=== PATIENT | female | born 1940 | race Caucasian/White ===

== ENCOUNTER 2016-10-10 15:20 | Inpatient (IN) | payer OTHER ==
[~2016-10-10] VITALS: Ht 175.3 cm; Wt 90.6 kg
[2016-10-12] MEDS ORDERED: CELE200C PO (10:55)
[2016-10-12] MEDS ORDERED: ASPI81TA81 PO (10:55)
[2016-10-12] MEDS ORDERED: BYST10TA2 PO (10:56)
[2016-10-12] MEDS ORDERED: METF1000 PO (10:56)
[2016-10-12] MEDS ORDERED: LOSA100T PO (10:56)
[2016-10-12] MEDS ORDERED: LEVO112T2 PO (10:57)
[2016-10-12] MEDS ORDERED: CANA100T PO (10:57)
[2016-10-12] MEDS ORDERED: ZETI10TA5 PO (10:57)
[2016-10-12] MEDS ORDERED: PROT40TA PO (10:58)
[2016-10-29] MEDS ORDERED: TRANEXAMIC ACID INJ 1,360 MG in SODIUM CHLORIDE 0.9% INJ 100 ML IV SCH (06:45)
[2016-10-29] MEDS ORDERED: POVIDONE IODINE 5% (ANTISEPSIS KIT) 4 APPLICATIONS EACH NARE PRN (06:45)
[2016-10-29] MEDS ORDERED: INSULIN HUMAN REGULAR 1,000 UNITS/10 ML VIAL SQ PRN (06:45)
[2016-10-29] MEDS ORDERED: SODIUM CHLORID 0.9% 500 ML IV PRN (06:45)
[2016-10-29] MEDS ORDERED: CHLORHEXIDINE GLUCONATE 2 % 1 PACK (2 CLOTHS) TOPICAL PRN (06:45)
[2016-10-29] MEDS ORDERED: LACTATED RINGER'S 1000 ML IV PRN (06:45)
[2016-10-29] MEDS ORDERED: DEXAMETHASONE SOD PHOS 20 MG/5 ML VIAL IV PRN (06:45)
[2016-10-29] MEDS ORDERED: METOPROLOL TARTRATE 25 MG TAB PO PRN (06:45)
[2016-10-29] MEDS ORDERED: VANCOMYCIN 1000 MG/NS 250 ML (for <70 kg) IV SCH ×2 (06:45)
[2016-10-29] MEDS ORDERED: CHLORHEXIDINE GLUCONATE 4% SOLN 120 ML BTL TOPICAL SCH (06:45)
[2016-10-29] MEDS ORDERED: TRANEXAMIC PERI-ARTICULAR 3,000 MG/NS 100 ML P-ARTICULR SCH ×2 (06:45)
[2016-10-29] MEDS ORDERED: POVIDONE IODINE 7.5% SCRUB 118 ML BOTTLE TOPICAL SCH (06:45)
[2016-10-29] MEDS ORDERED: ROPIVACAINE PERI-ARTICULAR INJECTION. P-ARTICULR SCH ×5 (06:45)
[2016-10-29] MEDS ORDERED: CLINDAMYCIN 900 MG/NS 100 ML IV SCH ×2 (06:45)
[2016-10-29] MEDS ORDERED: HYDR-3288 PO (06:58)
[2016-10-29] MEDS ORDERED: ENOX40P SQ (06:58)
[2016-10-29] MEDS ORDERED: ASPI81CH37 CHEW (06:59)
[2016-10-29] MEDS: LEVOTHYROXINE SODIUM 112 MCG TAB PO SCH (07:00)
[2016-10-29] MEDS ORDERED: ZOLPIDEM TARTRATE 5 MG TAB PO PRN (07:00)
[2016-10-29] MEDS ORDERED: NALOXONE HCL 0.4 MG/ML AMP IV PRN (07:00)
[2016-10-29] MEDS ORDERED: SODIUM CHLORIDE 0.9% FLUSH 5 ML FLUSH IVF PRN (07:00)
[2016-10-29] MEDS ORDERED: diphenhydrAMINE HCL 50 MG/ML VIAL IV PRN (07:00)
[2016-10-29] MEDS ORDERED: MORPHINE SULFATE 4 MG/ML INJ IV PUSH PRN (07:00)
[2016-10-29] MEDS ORDERED: Post-op Orders (for Pharmacy) MISC XX ONE (07:00)
[2016-10-29] MEDS ORDERED: BISACODYL 10 MG SUPP RECTAL PRN (07:00)
[2016-10-29] MEDS ORDERED: SODIUM CHLORIDE 0.9% INJ 100 ML ONE (07:03)
[2016-10-29] MEDS ORDERED: GENTAMICIN SULFATE 80 MG/2 ML VIAL ONE (07:09)
[2016-10-29 07:17] VITALS: BP 122/67; PULSE 58; RESP 16; TEMP 97.7; O2SAT 96
[2016-10-29] MEDS ORDERED: ACETAMINOPHEN 1000 MG/100 ML VIAL IV ONE (07:59)
[2016-10-29] MEDS ORDERED: MIDAZOLAM HCL 2 MG/2 ML VIAL ONE (08:00)
[2016-10-29] MEDS ORDERED: fentaNYL CITRATE 250 MCG/5 ML AMP ONE (08:00)
[2016-10-29] MEDS: metFORMIN HCL 500 MG TAB PO SCH ×2 (09:00→17:47)
[2016-10-29] MEDS: EZETIMIBE 10 MG TAB PO SCH (09:00)
[2016-10-29] MEDS ORDERED: CANAGLIFLOZIN 100 MG PO SCH (09:00)
[2016-10-29] MEDS: PANTOPRAZOLE SOD 40 MG DELAYED RELEASE TAB PO SCH (09:00)
[2016-10-29] MEDS: NEBIVOLOL 10 MG TAB PO SCH (09:00)
[2016-10-29] MEDS ORDERED: LEVOTHYROXINE SODIUM 112 MCG TAB PO SCH (09:00)
[2016-10-29] MEDS: SODIUM CHLORIDE 0.9% FLUSH 5 ML FLUSH IVF SCH ×2 (09:00→21:00)
[2016-10-29] MEDS ORDERED: PROPOFOL 200 MG/20 ML AMP IV ONE (09:23)
[2016-10-29] MEDS ORDERED: NEOSTIGMINE 3 MG/3 ML SYR IV ONE (09:23)
[2016-10-29] MEDS ORDERED: ONDANSETRON HCL 4 MG/2 ML VIAL IV PUSH ONE (09:23)
[2016-10-29] MEDS ORDERED: DO NOT ADM ANY ANTICOAGULANT DRUGS PRN (10:19)
[2016-10-29] MEDS ORDERED: MORPHINE SULFATE 4 MG/ML INJ ONE (10:36)
[2016-10-29] MEDS: SODIUM CHLOR 0.9% 1000 ML INJ 1,000 ML IV SCH ×3 (10:45→22:22)
[2016-10-29] MEDS ORDERED: *morphine SULFATE 8 MG/ML PERIprocedure ONLY ONE ×2 (10:52→11:05)
--- NOTE | 2016-10-29 11:42 | RADRPT ---
EXAM DATE/TIME: 10/29/2016 10:27 [facility] COMPARISON: No previous studies available for comparison. INDICATIONS : Post op left total knee replacment. MEDICAL HISTORY : Unobtainable. SURGICAL HISTORY : Unobtainable. ENCOUNTER: Initial ACUITY: 1 day PAIN SCORE: Non-responsive. LOCATION: Left knee FINDINGS: Total knee arthroplasty is in place. The femoral, tibial, and patellar components appear intact. Th ere are no signs of loosening or fracture. CONCLUSION: Intact total knee arthroplasty for joseSharon ManuelSharon Byrne MD on October 29, 2016 at 11:41 Board Certified Radiologist. This report was verified electronically.
--- NOTE | 2016-10-29 12:06 | MP ---
cc: SANFORD WILKINS M.D. DATE OF SURGERY: 10/29/2016 PREOPERATIVE DIAGNOSIS Left knee osteoarthritis. POSTOPERATIVE DIAGNOSES Left knee osteoarthritis. PROCEDURE Left total knee arthroplasty. SURGEON Dr. Sanford Wilkins. DIRECTOR OF PEOPLE ROGERS Dominguez ANESTHESIA General with a femoral nerve block. ESTIMATED BLOOD LOSS 50 ccs. TOURNIQUET TIME 44 minutes at 250 mmHg. COMPLICATIONS None. IMPLANTS USED DePuy Attune size 8 posterior stabilized femoral component, size 7 rotating platform tibia baseplate, size 8 mm polyethylene tibial insert, size 38 patella. JUSTIFICATION The patient is a 76-year female with history of severe end-stage osteoarthritis involving the left knee joint. She has severe disabling pain with standing, walking, ambulation, weight-bear activities, even severe pain at rest. She has failed greater than 3 months of nonoperative conservative treatment to include medication therapy, injections, ambulatory assisted aids, home exercise program, activity modification, weight loss attempts. X-rays of the left knee reveal severe end-stage osteoarthritis, [id number] joint space narrowing, subchondral sclerosis, subchondral cyst osteophyte formation with varus deformity. The patient was counseled as to the risks, benefits and alternatives to a total knee arthroplasty. The risks were discussed which include but not limited to anesthesia, bleeding, infection, damage to nerves, blood vessels, pain, stiffness, failure of components, blood clots, pulmonary embolism and even . The patient's pain is severe, she favored the benefits over the risks and she did wish to proceed with surgery. PROCEDURE IN DETAIL A written consent was obtained. The patient was identified by name, taken to the operating room and placed supine on the operating table. General anesthesia was administered as well as 1 gram of IV vancomycin, 900 mg of IV clindamycin. She does have PENICILLIN ALLERGY. A well-padded tourniquet was placed on the left thigh. The left lower extremity was prepped and draped using isopropyl alcohol, Hibiclens solution and Chloraprep solution. After time-out was performed an Esmarch bandage was used to exsanguinate the left lower extremity. The tourniquet was inflated to 250 mmHg. A longitudinal incision was made over the anterior aspect of the left knee. Medial parapatellar arthrotomy was performed. The patella was everted. The patella was resected. Guide was used to resect 9 mm of patella. The size 38 mm guide was placed. Three drill holes were placed and a 30 mm trial fit well. Attention was turned to the femur where intramedullary guide erika was placed. The distal femoral guide was set to remove 11 mm distal femur, 5 degrees of anatomic valgus axis alignment, she did have a severe flexion contracture preoperatively. An oscillating saw was used to perform distal femoral cut. Attention was turned to the tibia where extramedullary tibial guide was set to resect 5 mm off the lowest portion of the medial tibial plateau. The tibial guide was pinned in place. A 5 mm spacer block showed easy full extension. Attention was returned back to the femur where the AP sizing block measured a size 8. The anterior reference 3 degree external rotation guide was used to pin a size [address] The anterior posterior chamfer cuts were performed. A size 8 PCL box guide was pinned in place. The PCL was boxed out with an oscillating saw. The medial and lateral meniscus remnants were removed as well as bone and soft tissue debris from posterior portion of the knee. A size 7 tibia base was pinned in place. The tibia was drilled and punched. Trial components were evaluated and final components cemented in place. With the 8-mm polyethylene tibial insert the leg could achieve full extension 0 degrees of flexion to 140, no evidence of tibial lift-off, varus-valgus balance appeared appropriate and symmetric and the patella was noted track centrally. Tourniquet was deflated. Bovie cautery was used for hemostasis. The surgical incision was irrigated with sterile saline pulse lavage antibiotic impregnated solution. The arthrotomy incision was closed with #1 Vicryl suture, subcutaneous layer with 2-0 Vicryl suture, skin was closed with Dermabond. Sterile dressing was applied. The patient tolerated the procedure well with no intraoperative complications noted. Brian Bazan, physician assistant distribution manager certified was present during the entire procedure to include patient positioning, the procedure itself. The medical necessity of a physician assistant distribution manager was indicated in this case due to the complexity of the procedure. He assisted with appropriate manipulation of the leg and also traction muscle, tendon, bone, neurovascular structure. He assisted with preparation of bone clamps and also implantation of the prosthetic replacement. MD ROLO Cuba/JOSH /10:04 AM /12:03 PM
[2016-10-29 12:10] VITALS: BP 120/60; PULSE 57; RESP 16; TEMP 95.4; O2SAT 97
[2016-10-29] MEDS: ACETAMINOPHEN/HYDROcodone 325 MG/7.5 MG TAB PO PRN ×3 (12:23→22:29)
--- NOTE | 2016-10-29 13:15 | HHI.DCPOC ---
Discharge Care Plan Diagnosis: (1) Primary localized osteoarthrosis, lower leg Your Health Problems Are: Difficulty with ADL Goals to Promote Your Health * To prevent worsening of your condition and complications * To maintain your health at the optimal level Directions to Meet Your Goals Take your medications as prescribed Follow your dietary instruction Follow activity as directed Keep your appointments as scheduled Take your immunizations and boosters as scheduled If your symptoms worsen call your PCP, if no PCP go to Urgent Care Center or Emergency Room Smoking is Dangerous to Your Health. Avoid second hand smoke Call the 24-hour hour crisis hotline for domestic abuse at Armen Bazan Oct 29, 2016 13:15
--- NOTE | 2016-10-29 13:15 | HHI.FF ---
Face to Face Verification Diagnosis: (1) Primary localized osteoarthrosis, lower leg Physical Therapy Gait training, Safety evaluation, Transfer training, bed to chair Knee: Total knee, Protocol: Left, Full weight bearing Left LE Weight Bearing: WB as tolerated Nursing RN: 3 days/week x 2 weeks Nursing: Hay teaching, Dressing changes Dressing Changes: Daily dressing change I have seen patient Carmen Feliz on 10/29/16. My clinical findings support the need for the requested home health care services because: Limited ability to care for self High risk of falls I certify that my clinical findings support that this patient is homebound because: Post-op weakness Unsteady gait/balance Armen Bazan Oct 29, 2016 13:15
[2016-10-29] MEDS ORDERED: WALKER WHEELS/F1 MIS (13:17)
[2016-10-29] MEDS ORDERED: COMMODE 3-IN-11 MIS (13:17)
[2016-10-29] MEDS ORDERED: CPMMACHINE (13:17)
--- NOTE | 2016-10-29 13:24 | PD.CONS ---
HPI Service [facility] Hospitalists Consult Requested By Dr. Armen Hayes Reason for Consult Medical Management Primary Care Physician [facility] Diagnoses: History of Present Illness Ms. Feliz is a pleasant 76 y/o female with diabetes mellitus, HTN, hyperlipidemia, hx of CVA in 1997 and osteoarthritis. She was admitted to [facility] on 10/29/16 for an elective left total knee arthroplasty with Dr. Hayes. [facility] Hospitalist team was consulted to help with managing the patients chronic medical issues. Patient is seen post-operatively on the orthopedic floor and is doing well. She is without any specific complaints at the time of examination. No nausea/vomiting, abd pain, chest pain , SOB, palpitations, chills, or fevers. She has a Navarro catheter in place. Review of Systems Constitutional: DENIES: Fever, Chills Eyes: DENIES: Vision loss Ears, nose, mouth, throat: DENIES: Hearing loss Respiratory: DENIES: Cough, Shortness of breath Cardiovascular: DENIES: Chest pain, Palpitations Gastrointestinal: DENIES: Abdominal pain, Nausea, Vomiting Genitourinary: DENIES: Hematuria Musculoskeletal: COMPLAINS OF: Joint pain, DENIES: Back pain, Neck pain Integumentary: DENIES: Rash Immunologic/allergic: DENIES: Urticaria Neurologic: DENIES: Abnormal gait Psychiatric: DENIES: Confusion Past Family Social History Past Medical History HTN Diabetes mellitus Hx of CVA in 1997, with some mild residual aphasia Hypothyroidism Peripheral neuropathy Osteoarthritis GERD Past Surgical History Right total hip arthroplasty Cholecystectomy Appendectomy Cesarian section x 2 Tonsillectomy/Adenoidectomy Reported Medications Protonix (Pantoprazole Sodium) 40 Mg Tab 40 Mg PO DAILY Zetia (Ezetimibe) 10 Mg Tab 10 Mg PO DAILY Invokana (Canagliflozin) 100 Mg Tab 100 Mg PO DAILY Take before 1st meal of day. Levothyroxine (Levothyroxine Sodium) 112 Mcg Tab 112 Mcg PO DAILY Bystolic (Nebivolol) 10 Mg Tab 10 Mg PO DAILY Metformin (Metformin HCl) 1,000 Mg Tab 1,000 Mg PO BIDPC With meals Losartan (Losartan Potassium) 100 Mg Tab 100 Mg PO HS Celebrex (Celecoxib) 200 Mg Cap 200 Mg PO BID Aspir-81 (Aspirin) 81 Mg Tabdr 81 Mg PO DAILY Allergies: Coded Allergies: Penicillin (Verified Allergy, Severe, itching, 10/29/16) Monosodium Glutamate (Unverified Allergy, Mild, ARMS GET HEAVY, 10/29/16) Amoxicillin (Unverified Allergy, Unknown, ITCHING, SHORTNESS OF BREATH, 02/05) Family History Noncontributory Social History Remote hx of heavy tobacco use, smoke 3+ ppd x 35+ years, quit 20 years Denies any alcohol or illicit drug use Physical Exam Vital Signs Vital Signs Date Time Temp Pulse Resp B/P Pulse Ox O2 Delivery O2 Flow Rate FiO2 10/29/16 11:30 97.8 57 16 122/58 98 Nasal Cannula 3 10/29/16 11:15 55 16 122/58 98 Nasal Cannula 3 10/29/16 11:00 63 16 126/60 98 Nasal Cannula 3 10/29/16 10:45 66 17 144/69 98 Nasal Cannula 3 10/29/16 10:30 59 15 144/70 98 Nasal Cannula 3 10/29/16 10:15 68 15 143/71 98 Nasal Cannula 3 10/29/16 10:07 97.6 63 15 139/65 95 Nasal Cannula 3 10/29/16 07:17 97.7 58 16 122/67 96 Physical Exam GENERAL: This is a well-nourished, well-developed patient, in no apparent distress. HEENT: Atraumatic. Normocephalic. No temporal or scalp tenderness. No scleral icterus. Airway patent. NECK: Trachea midline, supple, nontender. CARDIO: Regular. RESP: CTA bilaterally. No wheezes, rales, or rhonchi. ABD: +BS, soft, non-tender, nondistended. EXT: Left knee bandages are c/d/i NEURO: Awake and alert. Motor and sensory grossly within normal limits. Normal speech. Laboratory Laboratory Tests Test 10/29/16 07:20 Blood Type A POSITIVE Antibody Screen NEGATIVE Blood Bank Comment Imaging Last Impressions Knee X-Ray 10/29/16 0655 Signed Impressions: Service Date/Time: Saturday, October 29, 2016 10:27 - CONCLUSION: Intact total knee arthroplasty for Blanka Byrne MD Assessment and Plan Problem List: (1) Primary localized osteoarthrosis, lower leg Status: Acute Plan: - Pt s/p left TKA on 10/29/[address] Hayes - Post-op pain control per Ortho - PT daily - IS - Constipation precautions - DVT prophylaxis (2) Diabetes mellitus Status: Chronic Plan: - Metformin 1000mg BID resumed - NovoLog SSI - Accu checks (3) HTN (hypertension), benign Status: Chronic Plan: - Home meds resumed - Monitor (4) Hypothyroidism Status: Chronic Plan: - Home meds resumed (5) History of CVA (cerebrovascular accident) Status: Chronic Assessment and Plan Patient examined. Assessment and plan formulated with Alie Shelton PA-C. I agree with the above. Problem Qualifiers (1) Primary localized osteoarthrosis, lower leg: Qualified Code: M17.12 - Primary localized osteoarthrosis, lower leg, left (2) Diabetes mellitus: Alie Shelton Oct 29, 2016 13:24 Nasim Vines MD Oct 29, 2016 14:24
[2016-10-29] MEDS: INSULIN ASPART SUPPLEMENTAL SCALE SQ SCH ×3 (16:00→22:21)
[2016-10-29 16:06] VITALS: BP 135/69; PULSE 57; RESP 16; TEMP 95.7; O2SAT 99
[2016-10-29 17:05] VITALS: O2SAT 99
[2016-10-29 20:16] VITALS: BP 132/67; PULSE 60; RESP 18; TEMP 96.4; O2SAT 97
[2016-10-29] MEDS: LOSARTAN 50 MG TAB PO SCH ×2 (21:00→22:16)
[2016-10-29] MEDS: VANCOMYCIN INJ 1,000 MG in SODIUM CHLOR 0.9% 250 ML INJ 250 ML IV SCH (22:16)
[2016-10-29 23:42] VITALS: BP 109/59; PULSE 60; RESP 18; TEMP 96.7; O2SAT 97
[2016-10-30] VITALS (7 sets, daily range): BP systolic 98–143; BP diastolic 54–65; PULSE 58–69; RESP 18–22; TEMP 96–96.7; O2SAT 95–97
[2016-10-30] MEDS: ACETAMINOPHEN/HYDROcodone 325 MG/7.5 MG TAB PO PRN ×6 (02:19→22:32)
[2016-10-30] MEDS: LEVOTHYROXINE SODIUM 112 MCG TAB PO SCH (05:29)
[2016-10-30 06:38] LABS: HEMATOCRIT 31.9 % (35.0-46.0); MEAN CELL VOLUME 86.8 FL (80.0-100.0); MEAN CORPUSCULAR HEMOGLOBIN 28.8 PG (27.0-34.0); MEAN CORPUSCULAR HGB CONC 33.2 % (32.0-36.0); PLATELET COUNT 323 TH/MM3 (150-450); RED BLOOD COUNT 3.68 MIL/MM3 (4.00-5.30); RED CELL DISTRIBUTION WIDTH 13.8 % (11.6-17.2); REVIEW FLAG FINAL; WHITE BLOOD COUNT 11.9 TH/MM3 (4.0-11.0)
[2016-10-30 06:49] LABS: POTASSIUM 4.5 MEQ/L (3.5-5.1)
[2016-10-30] MEDS: INSULIN ASPART SUPPLEMENTAL SCALE SQ SCH ×4 (06:50→21:00)
--- NOTE | 2016-10-30 09:15 | PD.ORT.PN ---
Subjective Post Op Day #: 1 Subjective Remarks knee becoming painful Objective Vitals Vital Signs Date Time Temp Pulse Resp B/P Pulse Ox O2 Delivery O2 Flow Rate FiO2 10/30/16 04:59 96.7 59 18 98/55 95 10/29/16 23:42 96.7 60 18 109/59 97 10/29/16 20:16 96.4 60 18 132/67 97 10/29/16 20:12 Nasal Cannula 2.00 10/29/16 19:26 Nasal Cannula 2.50 10/29/16 17:05 99 Nasal Cannula 2.00 10/29/16 16:06 95.7 57 16 135/69 99 10/29/16 12:10 95.4 57 16 120/60 97 10/29/16 11:30 97.8 57 16 122/58 98 Nasal Cannula 3 10/29/16 11:15 55 16 122/58 98 Nasal Cannula 3 10/29/16 11:00 63 16 126/60 98 Nasal Cannula 3 10/29/16 10:45 66 17 144/69 98 Nasal Cannula 3 10/29/16 10:30 59 15 144/70 98 Nasal Cannula 3 10/29/16 10:15 68 15 143/71 98 Nasal Cannula 3 10/29/16 10:07 97.6 63 15 139/65 95 Nasal Cannula 3 I/O 10/29/16 10/29/16 10/29/16 10/30/16 10/30/16 10/30/16 07:00 15:00 23:00 07:00 15:00 23:00 Intake Total 2208 ml 1052 ml 1210 ml Output Total 440 ml 250 ml 950 ml Balance 1768 ml 802 ml 260 ml Intake Oral 100 ml 360 ml 360 ml IV Total 608 ml 692 ml 850 ml Other 1500 ml Output Urine Total 290 ml 250 ml 950 ml Estimated Blood Loss 150 ml # Bowel Movements 0 0 0 Result Diagram: 10/30/16 0454 10/30/16 0454 Objective Remarks in bed, nad dressing c/d/i neg homans nvi Assessment & Plan Ortho Post Op Day #: 1 Problem List: Assessment and Plan s/p L TKA wbat daily dressing changes lovenox d/c planning home with [facility] and pt f/up 2 weeks Armen Bazan Oct 30, 2016 09:15
[2016-10-30] MEDS: VANCOMYCIN INJ 1,000 MG in SODIUM CHLOR 0.9% 250 ML INJ 250 ML IV SCH (09:22)
[2016-10-30] MEDS: metFORMIN HCL 500 MG TAB PO SCH ×2 (09:23→18:55)
[2016-10-30] MEDS: NEBIVOLOL 10 MG TAB PO SCH (09:23)
[2016-10-30] MEDS: PANTOPRAZOLE SOD 40 MG DELAYED RELEASE TAB PO SCH (09:23)
[2016-10-30] MEDS: EZETIMIBE 10 MG TAB PO SCH (09:23)
[2016-10-30] MEDS: SODIUM CHLORIDE 0.9% FLUSH 5 ML FLUSH IVF SCH ×2 (09:24→21:00)
[2016-10-30] MEDS: ENOXAPARIN SODIUM 40 MG/0.4 ML SYRINGE SQ SCH (09:25)
[2016-10-30] MEDS: ONDANSETRON HCL 4 MG/2 ML VIAL IVP PRN ×2 (10:57→22:32)
[2016-10-30] MEDS: SODIUM CHLOR 0.9% 1000 ML INJ 1,000 ML IV SCH ×2 (13:00→21:25)
[2016-10-30] MEDS: MULTIVITAMINS/MINERALS THERAPEUTIC TAB PO SCH (21:24)
[2016-10-30] MEDS: DOCUSATE SODIUM 100 MG CAP PO SCH (21:24)
[2016-10-30] MEDS: LOSARTAN 50 MG TAB PO SCH (21:24)
[2016-10-31] VITALS (7 sets, daily range): BP systolic 139–160; BP diastolic 65–74; PULSE 69–79; RESP 17–21; TEMP 96.1–98.5; O2SAT 92–95
[2016-10-31] MEDS: ACETAMINOPHEN/HYDROcodone 325 MG/7.5 MG TAB PO PRN ×5 (04:41→22:27)
[2016-10-31] MEDS: LEVOTHYROXINE SODIUM 112 MCG TAB PO SCH (06:37)
[2016-10-31] MEDS: INSULIN ASPART SUPPLEMENTAL SCALE SQ SCH ×4 (06:37→22:28)
--- NOTE | 2016-10-31 07:53 | PD.ORT.PN ---
Subjective Post Op Day #: 2 Subjective Remarks feels like leg is weak and needs assistance getting out of bed. Objective Vitals Vital Signs Date Time Temp Pulse Resp B/P Pulse Ox O2 Delivery O2 Flow Rate FiO2 10/31/16 04:00 98.5 76 17 144/67 95 10/31/16 00:00 96.1 77 21 145/65 94 10/30/16 20:00 96.1 69 22 143/60 96 10/30/16 19:16 Room Air 10/30/16 18:08 97 21 10/30/16 16:00 96.0 65 18 124/65 95 10/30/16 12:00 96.0 62 18 116/60 97 10/30/16 11:20 97 10/30/16 09:22 Room Air 10/30/16 08:00 96.0 58 18 106/54 95 I/O 10/30/16 10/30/16 10/30/16 10/31/16 10/31/16 10/31/16 07:00 15:00 23:00 07:00 15:00 23:00 Intake Total 1210 ml 1380 ml 480 ml Output Total 950 ml 800 ml Balance 260 ml 580 ml 480 ml Intake Oral 360 ml 1380 ml 480 ml IV Total 850 ml Output Urine Total 950 ml 800 ml # Voids 3 3 # Bowel Movements 0 0 0 Result Diagram: 10/30/16 0454 10/30/16 0454 Objective Remarks in bed, nad incision no erythema, no drainage neg homans nvi Assessment & Plan Ortho Post Op Day #: 2 Problem List: Assessment and Plan s/p L TKA wbat daily dressing changes lovenox PT d/c planning home with [facility] and pt - anticipate tomorrow depending on PT progress. may need to consider snf. f/up 2 weeks Armen Bazan Oct 31, 2016 07:53
[2016-10-31] MEDS ORDERED: HOSP BED1 (07:56)
[2016-10-31 08:24] LABS: MEAN CELL VOLUME 87.1 FL (80.0-100.0); MEAN CORPUSCULAR HEMOGLOBIN 28.1 PG (27.0-34.0); MEAN CORPUSCULAR HGB CONC 32.3 % (32.0-36.0); PLATELET COUNT 315 TH/MM3 (150-450); RED BLOOD COUNT 3.79 MIL/MM3 (4.00-5.30); RED CELL DISTRIBUTION WIDTH 14.1 % (11.6-17.2); REVIEW FLAG FINAL; WHITE BLOOD COUNT 9.2 TH/MM3 (4.0-11.0)
[2016-10-31] MEDS: SODIUM CHLOR 0.9% 1000 ML INJ 1,000 ML IV SCH ×2 (09:16→18:26)
[2016-10-31 09:17] LABS: BICARBONATE 23.2 MEQ/L (21.0-32.0); POTASSIUM 3.5 MEQ/L (3.5-5.1)
[2016-10-31] MEDS: ENOXAPARIN SODIUM 40 MG/0.4 ML SYRINGE SQ SCH (09:17)
[2016-10-31] MEDS: SODIUM CHLORIDE 0.9% FLUSH 5 ML FLUSH IVF SCH ×2 (09:17→22:28)
[2016-10-31] MEDS: metFORMIN HCL 500 MG TAB PO SCH ×2 (09:18→18:26)
[2016-10-31] MEDS: PANTOPRAZOLE SOD 40 MG DELAYED RELEASE TAB PO SCH (09:18)
[2016-10-31] MEDS: NEBIVOLOL 10 MG TAB PO SCH (09:18)
[2016-10-31] MEDS: DOCUSATE SODIUM 100 MG CAP PO SCH ×2 (09:18→22:26)
[2016-10-31] MEDS: MULTIVITAMINS/MINERALS THERAPEUTIC TAB PO SCH ×2 (09:18→22:26)
[2016-10-31] MEDS: EZETIMIBE 10 MG TAB PO SCH (09:18)
[2016-10-31] MEDS: LOSARTAN 50 MG TAB PO SCH (22:26)
[2016-11-01 00:22] VITALS: BP 128/64; PULSE 78; RESP 18; TEMP 98.2; O2SAT 92
[2016-11-01] MEDS: ACETAMINOPHEN/HYDROcodone 325 MG/7.5 MG TAB PO PRN ×3 (03:56→12:41)
[2016-11-01] MEDS: ONDANSETRON HCL 4 MG/2 ML VIAL IVP PRN ×2 (04:02→10:43)
[2016-11-01] MEDS: SODIUM CHLOR 0.9% 1000 ML INJ 1,000 ML IV SCH (05:05)
[2016-11-01] MEDS: LEVOTHYROXINE SODIUM 112 MCG TAB PO SCH (06:42)
[2016-11-01] MEDS: INSULIN ASPART SUPPLEMENTAL SCALE SQ SCH ×2 (07:00→10:47)
[2016-11-01 07:32] VITALS: BP 143/68; PULSE 67; RESP 18; TEMP 98; O2SAT 92
--- NOTE | 2016-11-01 08:04 | PD.ORT.PN ---
Subjective Post Op Day #: 3 Subjective Remarks feeling better. ready to go home. Objective Vitals Vital Signs Date Time Temp Pulse Resp B/P Pulse Ox O2 Delivery O2 Flow Rate FiO2 11/01/16 00:22 98.2 78 18 128/64 92 10/31/16 20:59 97.1 74 18 139/69 92 10/31/16 16:00 96.3 79 18 160/74 95 10/31/16 12:00 96.1 69 18 144/68 94 10/31/16 10:02 95 21 10/31/16 09:18 Room Air I/O 10/31/16 10/31/16 10/31/16 11/01/16 11/01/16 11/01/16 07:00 15:00 23:00 07:00 15:00 23:00 Intake Total 480 ml 960 ml 360 ml Balance 480 ml 960 ml 360 ml Intake Oral 480 ml 960 ml 360 ml # Voids 3 6 2 # Bowel Movements 0 0 0 Result Diagram: 10/31/16 0732 10/31/16 0732 Objective Remarks in bed, nad dressing c/d/i neg homans nvi Assessment & Plan Ortho Post Op Day #: 3 Problem List: Assessment and Plan s/p L TKA wbat daily dressing changes lovenox PT d/c planning home with [facility] and pt - cleared for d/c today f/up 2 weeks Armen Bazan Nov 01, 2016 08:04
[2016-11-01] MEDS: PANTOPRAZOLE SOD 40 MG DELAYED RELEASE TAB PO SCH (08:16)
[2016-11-01] MEDS: NEBIVOLOL 10 MG TAB PO SCH (08:16)
[2016-11-01] MEDS: metFORMIN HCL 500 MG TAB PO SCH (08:16)
[2016-11-01] MEDS: MULTIVITAMINS/MINERALS THERAPEUTIC TAB PO SCH (08:16)
[2016-11-01] MEDS: DOCUSATE SODIUM 100 MG CAP PO SCH (08:16)
[2016-11-01] MEDS: EZETIMIBE 10 MG TAB PO SCH (08:16)
[2016-11-01] MEDS: ENOXAPARIN SODIUM 40 MG/0.4 ML SYRINGE SQ SCH (08:16)
[2016-11-01] MEDS: SODIUM CHLORIDE 0.9% FLUSH 5 ML FLUSH IVF SCH (08:17)
[2016-11-01 10:48] LABS: MEAN CELL VOLUME 86.4 FL (80.0-100.0); MEAN CORPUSCULAR HEMOGLOBIN 28.3 PG (27.0-34.0); MEAN CORPUSCULAR HGB CONC 32.7 % (32.0-36.0); PLATELET COUNT 348 TH/MM3 (150-450); RED BLOOD COUNT 3.82 MIL/MM3 (4.00-5.30); RED CELL DISTRIBUTION WIDTH 13.9 % (11.6-17.2); REVIEW FLAG FINAL
[2016-11-01 11:07] LABS: BICARBONATE 24.1 MEQ/L (21.0-32.0); POTASSIUM 3.3 MEQ/L (3.5-5.1)
--- NOTE | 2016-11-05 08:49 | MD ---
cc: SANFORD HAYES M.D. ADMISSION DATE: 10/29/2016 DISCHARGE DATE: 11/01/2016 ADMISSION DIAGNOSIS Severe degenerative osteoarthritis left knee DISCHARGE DIAGNOSIS Severe degenerative osteoarthritis left knee HISTORY OF PRESENT ILLNESS Ms. Feliz is a 76-year-old female who presented to the [facility] by Dr. Sanford Hayes regarding progressive left knee pain. The patient states the left knee pain is currently constant severe aching sensation inhibiting her activities of daily living. She notes she has no alleviating factors at this point time, although she has tried medications, bracing, physical therapy, home exercise program, and injections without relief of symptoms. She does have x-ray evidence of severe degenerative osteoarthritis of left knee. While in the office the patient was counseled about her diagnosis and treatment options. The risks, benefits, indications were all discussed in great detail. The patient did elect to proceed with surgical intervention to include a left total knee arthroplasty. Date of surgery: 10/29/2016, left total knee arthroplasty. Postop after surgery: the patient admitted to [facility] where she received appropriate medical management, pain control, DVT prophylaxis as well as physical therapy. Discharge: Once being discharged from the hospital the patient is cleared to go home where she will receive home health care and home physical therapy. She is in stable condition. She may weightbear as tolerated. She has received daily dressing changes and has been instructed on appropriate wound care management. The patient has been provided prescriptions for pain control as well as DVT prophylaxis medications. She has also been provided a follow up appointment in approximately two weeks from her day of surgery. The patient has had asked appropriate questions which have been answered. The patient is cleared for discharge. Dictated by: ROGERS Sanders MD ROLO Cuba/TELLO /8:11 AM /8:53 AM
== END 2016-11-01 13:14 | disposition home health service (06) | DRG 470 ==
LOC: HSDI 10-29 05:15 → N06B 10-29 11:53
PROVIDERS: ADMIT Orthopaedic Surgery Sports Medicine; ATTEND Orthopaedic Surgery Sports Medicine
PROC: 3E0T3BZ Introduction of Anesthetic Agent into Peripheral Nerves and Plexi, Percutaneous Approach (ICD-10-PCS; 2016-10-29)
PROC: 0SRD0J9 Replacement of Left Knee Joint with Synthetic Substitute, Cemented, Open Approach (ICD-10-PCS; principal; 2016-10-29 08:05)
DX: M17.12 Unilateral primary osteoarthritis, left knee (principal); G62.9 Polyneuropathy, unspecified; E11.9 Type 2 diabetes mellitus without complications; Z79.84 Long term (current) use of oral hypoglycemic drugs; I69.320 Aphasia following cerebral infarction; I10 Essential (primary) hypertension; E03.9 Hypothyroidism, unspecified; K21.9 Gastro-esophageal reflux disease without esophagitis; E78.5 Hyperlipidemia, unspecified; Z96.641 Presence of right artificial hip joint; Z87.891 Personal history of nicotine dependence
CPT/HCPCS: 73560; 80048; 82948; 85027; 86850; 86900; 86901; 94150; C1776; J0131; J0171; J0735; J1100; J1580; J1650; J1815; J1885; J2250; J2270; J2405; J2710; J2795; J3010; J3370; J7030; J7050; J7120; L1830

== ENCOUNTER → 2016-10-12 | Outpatient (CLI) | payer OTHER ==
[~2016-10-12] MED LIST: ASPI81 PO; ASPI81TA81 PO; BYST10TA2 PO; BYST2.5T2 PO; CANA100T PO; CELE200 PO; CELE200C PO; LEVO112T2 PO; LOSA100T PO; LOSA50TA PO; METF-324 PO; METF1000 PO; PROT40TA PO; TRAD5TAB OR; ZETI10TA5 PO
[2016-10-12 09:54] LABS: AUTOMATED NEUTROPHIL # 5.7 TH/MM3 (1.8-7.7); BASOPHIL % 0.5 % (0.0-2.0); EOSINOPHIL # 0.1 TH/MM3 (0-0.4); EOSINOPHIL % 1.5 % (0.0-4.0); HEMO FLAGS DIFF FINAL; LYMPH % 34.2 % (9.0-44.0); LYMPHOCYTE # 3.3 TH/MM3 (1.0-4.8); MEAN CELL VOLUME 86.6 FL (80.0-100.0); MEAN CORPUSCULAR HEMOGLOBIN 28.6 PG (27.0-34.0); MONO % 5.6 % (0.0-8.0); NEUT % 58.2 % (16.0-70.0); PLATELET COUNT 372 TH/MM3 (150-450); RED BLOOD COUNT 4.39 MIL/MM3 (4.00-5.30); WHITE BLOOD COUNT 9.7 TH/MM3 (4.0-11.0)
[2016-10-12 10:04] LABS: INTERNATIONAL NORMALIZED RATIO 0.9 RATIO; PROTHROMBIN TIME - PATIENT 10.4 SEC (9.8-11.6)
[2016-10-12 10:08] LABS: BACTERIA, URINE FEW /hpf; BLOOD, URINE SMALL (NEG); COMMENT (UR) CULTURE INDICATED; CULTURE IF INDICATED CULTURE INDICATED; GLUCOSE,URINE 1000 mg/dL (NEG); KETONE, URINE NEG (NEG); MUCUS URINE FEW /lpf (OCC); NITRITE,URINE NEG (NEG); SQUAMOUS EPITHELIAL CELL URINE 1 /hpf (0-5); URINE COLOR YELLOW (YELLW/STRAW)
[2016-10-12 10:27] LABS: WESTERGREN SEDIMENTATION RATE 28 mm/hr (0-30)
[2016-10-12 10:55] LABS: ANION GAP 9 MEQ/L (5-15); AST (GOT) 25 U/L (15-37); BICARBONATE 25.6 MEQ/L (21.0-32.0); BLOOD UREA NITROGEN 13 MG/DL (7-18); CHLORIDE 107 MEQ/L (98-107); GLOMERULAR FILTRATION RATE 57 ML/MIN (>89); GLUCOSE,FASTING 146 MG/DL (74-99); POTASSIUM 4.5 MEQ/L (3.5-5.1); SODIUM (NA) 142 MEQ/L (136-145)
[2016-10-12 10:58] LABS: ALKALINE PHOSPHATASE 56 U/L (45-117); ALT (GPT) 55 U/L (10-53); TOTAL BILIRUBIN ADULT 0.3 MG/DL (0.2-1.0)
--- NOTE | 2016-10-12 11:04 | RADRPT ---
EXAM DATE/TIME: 10/12/2016 09:54 [facility] COMPARISON: No previous studies available for comparison. INDICATIONS : Evaluate for pneumothorax, pneumonia or communicable disease. Pre-op for left knee replacement. MEDICAL HISTORY : Hypertension. Diabetes mellitus type II. SURGICAL HISTORY : None. ENCOUNTER: Initial ACUITY: 1 day PAIN SCORE: 0/10 LOCATION: Bilateral chest FINDINGS: There are 3 irregular parenchymal nodules or focal areas of scarring in the right upper lobe measurin g about 1 cm in diameter. There is no prior study for comparison. Left lung is clear. No effusion. No pneumothorax. Heart size normal. CONCLUSION: 1. There are at least 3 parenchymal nodular densities in the right upper lobe with a slightly irregul ar margins measuring around a centimeter in diameter. No prior study for comparison. Further evaluati on with chest CT without contrast recommended. Marvin Quinteros MD on October 12, 2016 at 10:59 Board Certified Radiologist. This report was verified electronically.
== END ==
LOC: CPRE 08:34
PROVIDERS: ATTEND Orthopaedic Surgery Sports Medicine
DX: Z01.812 Encounter for preprocedural laboratory examination (principal); Z01.811 Encounter for preprocedural respiratory examination; M26.50 Dentofacial functional abnormalities, unspecified; N39.0 Urinary tract infection, site not specified; B96.20 Unspecified Escherichia coli [E. coli] as the cause of diseases classified elsewhere; Z79.01 Long term (current) use of anticoagulants; Z96.60 Presence of unspecified orthopedic joint implant
CPT/HCPCS: 36415; 71020; 80053; 81001; 85025; 85610; 85652; 85730; 87077; 87086; 87186